=== PATIENT | female | born 1990 ===

== ENCOUNTER 2024-08-06 06:20 | Outpatient (REF) | payer OTHER, SELFPAY ==
--- NOTE | ~2024-08-06 | US_ITS ---
EXAMINATION: ULTRASOUND OF THE PELVIS CLINICAL INFORMATION: Lower abdominal pain. Question ruptured ovarian cyst. COMPARISON: None TECHNIQUE: Transabdominal and transvaginal pelvic ultrasound. A transvaginal study was performed in addition to the transabdominal study which did not yield an adequate examination of the uterus and ovaries due to superimposed distended gas-filled loops of bowel. FINDINGS: Uterus: The uterus is anteverted and normal in size and appearance, measuring 9.2 x 4.8 x 5.1 cm. The endometrial stripe thickness is normal, measuring 1.1 cm in thickness. No focal myometrial mass is seen. The cervical length is normal measuring approximately 3 cm. Ovaries: The ovaries bilaterally are visualized and appear normal, with the right ovary measuring 2.9 x 2.5 x 1.9 cm (7 mL volume) and the left ovary measuring 3 x 1.7 x 1.9 cm (5.1 mL volume). No significant dominant follicle is seen in either ovary. Spectral Doppler analysis of the arterial and venous flow to both ovaries was not performed. Other: No adnexal mass seen. Trace amount of free fluid is seen in the cul-de-sac, consistent with physiologic findings in this young woman. US/US pelvic and transvaginal IMPRESSION: Normal pelvic ultrasound. Electronically signed by: Verena Decker MD 08/07/2024 04:57 PM EDT
== END 2024-08-06 06:21 | disposition home or self-care (01) ==
LOC: HO.UMASIMG 06:20
PROVIDERS: Visit Provider Family Medicine
DX: R10.9 Unspecified abdominal pain (principal)
CPT/HCPCS: 76830; 76856

== ENCOUNTER 2024-09-08 06:39 | Outpatient (REF) | payer OTHER, SELFPAY ==
--- NOTE | ~2024-09-08 | US_ITS ---
EXAMINATION: US ABDOMEN COMPLETE CLINICAL INFORMATION: Right upper quadrant/lateral pain. COMPARISON: None available. TECHNIQUE: Real-time imaging of the abdominal viscera. FINDINGS: PANCREAS: Normal. ABDOMINAL AORTA: The proximal, mid, and distal segments are normal in caliber. INFERIOR VENA CAVA: Visualized portions are normal. LIVER: Normal. The liver is normal in size. The liver contour is normal. Parenchymal echogenicity is normal. No focal hepatic lesion. There is no intrahepatic biliary duct dilatation seen. GALLBLADDER: Nonmobile gallbladder wall polyp measuring up to 0.4 cm. Echogenic bile without a discrete gallstone. No gallbladder wall thickening or pericholecystic free fluid to suggest acute cholecystitis. COMMON BILE DUCT: Normal in caliber measuring 0.2 cm in diameter. RIGHT KIDNEY: Mild caliectasis without significant hydronephrosis. No renal calculi or focal parenchymal lesions. The kidney measures 9.1 cm in maximum dimension. LEFT KIDNEY: Nonobstructing midpole stone measuring up to 0.4 cm. No hydronephrosis. No focal parenchymal lesions. The kidney measures 10.6 cm in maximum dimension. SPLEEN: Normal. The spleen measures 8.3 cm in maximum dimension. FREE FLUID: None. US/US abdomen complete IMPRESSION: 1. Nonmobile gallbladder wall polyp measuring 0.4 cm. No cholelithiasis, gallbladder wall thickening, or pericholecystic free fluid to suggest acute cholecystitis. 2. Mild right renal caliectasis without significant hydronephrosis. No right-sided renal stone. 3. Nonobstructing left midpole renal stone measuring 0.4 cm. No left-sided hydronephrosis. Electronically signed by: Aroldo Tao MD 09/11/2024 02:34 PM [facility]
== END 2024-09-08 06:40 | disposition home or self-care (01) ==
LOC: HO.UMASIMG 06:39
PROVIDERS: Visit Provider Emergency Medicine
DX: R10.9 Unspecified abdominal pain (principal)
CPT/HCPCS: 76700